=== PATIENT | female | born 1995 | race African-American/Black ===

== ENCOUNTER 2017-10-25 10:24 | Emergency (ER) | payer OTHER | END 2017-10-25 12:45 | disposition home or self-care (01) | LOC: FTE 10:24 | DX: S61.212A Laceration without foreign body of right middle finger without damage to nail, initial encounter (principal); W25.XXXA Contact with sharp glass, initial encounter; Y92.9 Unspecified place or not applicable | CPT/HCPCS: 12001; 73130-RT; 99283-25 ==